=== PATIENT | female | born 2000 | race American Indian/Alaskan Native ===

== ENCOUNTER 2019-07-24 07:01 | Emergency (ER) | payer SELFPAY ==
[2019-07-24 08:14] LABS: HCG Qualitative,Urine Negative (Negative)
[2019-07-24 08:15] LABS: Bilirubin,Urine NEG (Negative); Blood,Urine SM (Negative); Color,Urine Yellow (Yellow); Hyaline Casts,Urine 1 /LPF; Mucus,Urine 3+ /HPF; Urobilinogen,Urine < 2.0 mg/dL (<2.0)
--- NOTE | 2019-07-24 08:21 | Emergency Department Report ---
ED Abdominal Pain HPI - General Chief Complaint: Abdominal Pain Stated Complaint: ABDOMINAL PAIN TOP AREA Time Seen by Provider: 07/24/19 07:53 Source: patient Mode of arrival: Ambulatory Limitations: No Limitations - History of Present Illness Initial Comments: This is a 18-year-old female presents to the ED complaining of upper abdominal pain for the past 3 weeks. Patient states she was seen last week and evaluated at another facility. Patient states that nothing was found. Patient also states that symptoms got worse 2 days ago she she decided to come and be evaluated. Patient states she is not taking any medications. She denies nausea vomiting fever, shortness of breath, chest pain diarrhea or any other symptoms MD Complaint: abdominal pain Location: LUQ, RUQ Radiation: none Migration to: no migration Severity scale (0 -10): 6 Quality: aching, other (squeezing pain) Improves With: nothing Worsens With: nothing Associated Symptoms: denies: nausea, vomiting, diarrhea, fever, constipation, dysuria, hematuria - Related Data Previous Rx's Medication Instructions Recorded Last Taken Type Dicyclomine [Bentyl] 10 mg PO TID #30 capsule 07/24/19 Unknown Rx Famotidine [Pepcid] 20 mg PO BID #40 tablet 07/24/19 Unknown Rx Allergies Allergy/AdvReac Type Severity Reaction Status Date / Time No Known Allergies Allergy Unverified 07/24/19 07:15 ED Review of Systems ROS: Stated complaint: ABDOMINAL PAIN TOP AREA Other details as noted in HPI Comment: All other systems reviewed and negative ED Past Medical Hx - Past Medical History Previous Medical History?: No - Surgical History Past Surgical History?: No - Social History Smoking Status: Never Smoker Substance Use Type: None - Medications Home Medications: Home Medications Medication Instructions Recorded Confirmed Last Taken Type Dicyclomine [Bentyl] 10 mg PO TID #30 capsule 07/24/19 Unknown Rx Famotidine [Pepcid] 20 mg PO BID #40 tablet 07/24/19 Unknown Rx ED Physical Exam - General Limitations: No Limitations General appearance: alert, in no apparent distress - Head Head exam: Present: atraumatic, normocephalic - Eye Eye exam: Present: normal appearance - ENT ENT exam: Present: mucous membranes moist - Neck Neck exam: Present: normal inspection - Respiratory Respiratory exam: Present: normal lung sounds bilaterally. Absent: respiratory distress - Cardiovascular Cardiovascular Exam: Present: regular rate, normal rhythm. Absent: systolic murmur, diastolic murmur, rubs, gallop - GI/Abdominal GI/Abdominal exam: Present: soft, tenderness (to palpation of the upper abdomen), guarding, normal bowel sounds. Absent: distended, rebound, rigid, mass, bruit - Extremities Exam Extremities exam: Present: normal inspection - Back Exam Back exam: Present: normal inspection - Neurological Exam Neurological exam: Present: alert, oriented X3 - Psychiatric Psychiatric exam: Present: normal affect, normal mood - Skin Skin exam: Present: warm, dry, intact, normal color. Absent: rash ED Course Vital Signs 07/24/19 07/24/19 07/24/19 07:17 07:32 11:30 Temperature 98.2 F 97.9 F Pulse Rate 86 68 70 Respiratory 18 16 16 Rate Blood Pressure 110/67 131/70 Blood Pressure 121/74 [Left] O2 Sat by Pulse 98 99 99 Oximetry ED Medical Decision Making - Radiology Data Radiology results: report reviewed, image reviewed ULTRASOUND ABDOMEN, COMPLETE INDICATION: Unspecified upper quadrant pain for 3 weeks. COMPARISON: No relevant prior imaging study available. FINDINGS: Pancreas: No significant abnormality. Abdominal Aorta: No significant abnormality. IVC: No significant abnormality. Liver: No significant abnormality. Gallbladder: No significant abnormality. Bile ducts: No significant abnormality. Common bile duct measures 1.3 mm. Kidneys: Right: No significant abnormality. Left : No significant abnormality. Spleen: No significant abnormality. Free fluid: None. Additional Findings: None. IMPRESSION: 1. No sonographic abnormality of the abdomen. Signer Name: Juan Carrera MD Signed: 07/24/2019 9:59 AM Workstation Name: [id number] Transcribed By: ADRIEN Dictated By: Juan Carrera MD Electronically Authenticated By: Juan Carrera MD Signed Date/Time: 07/24/19 0959 - Medical Decision Making This 18-year-old female who presents with abdominal pain most likely secondary to acute gastritis. All labs were within normal limits.abdominal ultrasound shows no acute findings. Vital signs are normal patient is in acute distress. Discussed the patient to follow up with import export clerk. Critical care attestation.: If time is entered above; I have spent that time in minutes in the direct care of this critically ill patient, excluding procedure time. ED Disposition Clinical Impression: Acute gastric ulcer, Acute gastritis without bleeding Disposition: DC-01 TO HOME OR SELFCARE Is pt being admited?: No Does the pt Need Aspirin: No Condition: Stable Instructions: Gastritis (ED), Diet for Ulcers and Gastritis (ED), Abdominal Pain (ED) Additional Instructions: Make sure to follow up with the primary care physician as discussed. Take all your medications as you've been prescribed. If you have any worsening symptoms or develop new symptoms please return to ED immediately. Prescriptions: Dicyclomine [Bentyl] 10 mg PO TID #30 capsule Famotidine [Pepcid] 20 mg PO BID #40 tablet Referrals: PRIMARY CARE,MD [Primary Care Provider] - 3-5 Days [facility] [Provider Group] - 3-5 Days [facility] [Provider Group] - 3-5 Days Forms: Accompanied Note, Work/School Release Form(ED) Time of Disposition: 11:15
[2019-07-24] MEDS ORDERED: FAMOTIDINE 20 MG TAB PO ONE (09:17)
[2019-07-24] MEDS ORDERED: DICYCLOMINE 10 MG/5 ML ORAL LIQD PO ONE (10:00)
--- NOTE | 2019-07-24 10:03 | Ultrasound Report ---
ULTRASOUND ABDOMEN, COMPLETE INDICATION: Unspecified upper quadrant pain for 3 weeks. COMPARISON: No relevant prior imaging study available. FINDINGS: Pancreas: No significant abnormality. Abdominal Aorta: No significant abnormality. IVC: No significant abnormality. Liver: No significant abnormality. Gallbladder: No significant abnormality. Bile ducts: No significant abnormality. Common bile duct measures 1.3 mm. Kidneys: Right: No significant abnormality. Left : No significant abnormality. Spleen: No significant abnormality. Free fluid: None. Additional Findings: None. IMPRESSION: 1. No sonographic abnormality of the abdomen. Signer Name: Juan Carrera MD Signed: 07/24/2019 9:59 AM Workstation Name: [id number]
[2019-07-24 11:31] VITALS: BP 121/74
== END 2019-07-24 11:30 | disposition home or self-care (01) ==
LOC: ED 07:01
DX: K25.3 Acute gastric ulcer without hemorrhage or perforation (principal); Z79.899 Other long term (current) drug therapy
CPT/HCPCS: 76700; 81001; 81025

== ENCOUNTER 2019-11-13 07:39 | Emergency (ER) | payer OTHER ==
--- NOTE | 2019-11-13 10:41 | Emergency Department Report ---
- General Chief complaint: Skin/Abscess/Foreign Body Stated complaint: BUTT PAIN Time Seen by Provider: 11/13/19 10:05 Source: patient Mode of arrival: Ambulatory Limitations: No Limitations - History of Present Illness Initial comments: 18-year-old obese female with history of recurrent gluteal abscesses some that were previously treated by surgeon presents to the emergency department complaining of a reemergence of symptoms. She reports pain and swelling to her gluteal cleft region but reports no fevers chills or discharge. Reports no abdominal pain, no chest pain. States that she last had it drained about 2 years ago states that she frequently gets abscess to her groin area as well which are normally self-limiting MD complaint: abscess/boil -: Gradual Tetanus Up to Date: yes Location: buttocks Severity: mild Improves with: medication Worsens with: none Context: none - Related Data Previous Rx's Medication Instructions Recorded Last Taken Type Dicyclomine [Bentyl] 10 mg PO TID #30 capsule 07/24/19 Unknown Rx Famotidine [Pepcid] 20 mg PO BID #40 tablet 07/24/19 Unknown Rx Ketorolac [Toradol] 10 mg PO Q6H PRN #15 tablet 11/13/19 Unknown Rx Sulfamethoxazole/Trimethoprim 1 each PO BID #20 tablet 11/13/19 Unknown Rx [Bactrim Ds] cephALEXin [Keflex] 500 mg PO Q6HR #40 capsule 11/13/19 Unknown Rx Allergies Allergy/AdvReac Type Severity Reaction Status Date / Time No Known Allergies Allergy Verified 11/13/19 07:41 Abscess Boil HPI - HPI Chief Complaint: Skin/Abscess/Foreign Body Stated Complaint: BUTT PAIN Time Seen by Provider: 11/13/19 10:05 Home Medications: Previous Rx's Medication Instructions Recorded Last Taken Type Dicyclomine [Bentyl] 10 mg PO TID #30 capsule 07/24/19 Unknown Rx Famotidine [Pepcid] 20 mg PO BID #40 tablet 07/24/19 Unknown Rx Ketorolac [Toradol] 10 mg PO Q6H PRN #15 tablet 11/13/19 Unknown Rx Sulfamethoxazole/Trimethoprim 1 each PO BID #20 tablet 11/13/19 Unknown Rx [Bactrim Ds] cephALEXin [Keflex] 500 mg PO Q6HR #40 capsule 11/13/19 Unknown Rx Allergies/Adverse Reactions: Allergies Allergy/AdvReac Type Severity Reaction Status Date / Time No Known Allergies Allergy Verified 11/13/19 07:41 ED Review of Systems ROS: Stated complaint: BUTT PAIN Other details as noted in HPI Comment: All other systems reviewed and negative ED Past Medical Hx - Past Medical History Previous Medical History?: No - Surgical History Past Surgical History?: Yes Additional Surgical History: I &D - Social History Smoking Status: Never Smoker Substance Use Type: None - Medications Home Medications: Home Medications Medication Instructions Recorded Confirmed Last Taken Type Dicyclomine [Bentyl] 10 mg PO TID #30 capsule 07/24/19 Unknown Rx Famotidine [Pepcid] 20 mg PO BID #40 tablet 07/24/19 Unknown Rx Ketorolac [Toradol] 10 mg PO Q6H PRN #15 tablet 11/13/19 Unknown Rx Sulfamethoxazole/Trimethoprim 1 each PO BID #20 tablet 11/13/19 Unknown Rx [Bactrim Ds] cephALEXin [Keflex] 500 mg PO Q6HR #40 capsule 11/13/19 Unknown Rx ED Physical Exam - General Limitations: No Limitations General appearance: alert, in no apparent distress - Head Head exam: Present: atraumatic, normocephalic - Eye Eye exam: Present: normal appearance, PERRL, EOMI Pupils: Present: normal accommodation - ENT ENT exam: Present: mucous membranes moist, TM's normal bilaterally - Neck Neck exam: Present: normal inspection - Respiratory Respiratory exam: Present: normal lung sounds bilaterally. Absent: respiratory distress - Cardiovascular Cardiovascular Exam: Present: regular rate, normal rhythm. Absent: systolic murmur, diastolic murmur, rubs, gallop - GI/Abdominal GI/Abdominal exam: Present: soft, normal bowel sounds - Extremities Exam Extremities exam: Present: normal inspection - Back Exam Back exam: Present: normal inspection - Neurological Exam Neurological exam: Present: alert, oriented X3 - Psychiatric Psychiatric exam: Present: normal affect, normal mood - Skin Skin exam: Present: warm, dry, intact, normal color. Absent: rash - Expanded Skin Exam Expanded Distribution of rash: generalized Description of rash: Present: erythematous 1 - There is tenderness to this region very vague point of induration primarily normal tissue feeling no cellulitis is noted. No discharge no broken skin ED Course Vital Signs 11/13/19 11/13/19 07:41 09:47 Temperature 98.6 F Pulse Rate 84 Respiratory 18 20 Rate Blood Pressure 125/79 O2 Sat by Pulse 100 Oximetry Critical care attestation.: If time is entered above; I have spent that time in minutes in the direct care of this critically ill patient, excluding procedure time. ED Disposition Clinical Impression: Wound of buttock Disposition: DC-01 TO HOME OR SELFCARE Is pt being admited?: No Does the pt Need Aspirin: No Condition: Stable Instructions: Cellulitis (ED) Prescriptions: Sulfamethoxazole/Trimethoprim [Bactrim Ds] 1 each PO BID #20 tablet cephALEXin [Keflex] 500 mg PO Q6HR #40 capsule Ketorolac [Toradol] 10 mg PO Q6H PRN #15 tablet PRN Reason: Pain Referrals: [facility] [Provider Group] - 3-5 Days JANY DUARTE MD [Staff Physician] - 3-5 Days
[2019-11-13 10:50] VITALS: BP 117/58
[2019-11-13] MEDS ORDERED: IBUPROFEN 600 MG TAB PO ONE (10:53)
== END 2019-11-13 11:04 | disposition home or self-care (01) ==
LOC: ED 07:39
DX: L02.31 Cutaneous abscess of buttock (principal); Z79.899 Other long term (current) drug therapy
CPT/HCPCS: 99282

== ENCOUNTER 2019-11-20 14:57 | Emergency (ER) | payer OTHER ==
[2019-11-20] MEDS ORDERED: ACETAMINOPHEN 325 MG TAB PO ONE (15:02)
[2019-11-20] MEDS ORDERED: ACETAMINOPHEN 325 MG TAB ONE (15:04)
[2019-11-20 15:05] VITALS: BP 112/73
--- NOTE | 2019-11-20 15:30 | Event Note ---
ED Screening Note ED Screening Note: pt is a 18 female presents to the ED abscess to gluteal cleft started a week ago she states 2-3 years ago, she had a surgical procedure for it at [facility] she states it is open and drainage that began 2 days ago she did not notice a fever at home pt was seen a week ago and started on bactrim and keflex states it has been increasing in size This initial assessment/diagnostic orders/clinical plan/treatment(s) is/are subject to change based on patients health status, clinical progression and re- assessment by fellow clinical providers in the ED. Further treatment and workup at subsequent clinical providers discretion. Patient/guardian urged not to elope from the ED as their condition may be serious if not clinically assessed and managed. Initial orders include: labs tylenol given by triage
[2019-11-20 16:10] LABS: Basophils # (Auto) 0.1 K/mm3 (0.0-0.1); Basophils % (Auto) 0.3 % (0.0-1.8); Eosinophils % (Auto) 0.1 % (0.0-4.3); Hemoglobin 12.2 gm/dl (10.1-14.3); Lymphocytes # (Auto) 3.3 K/mm3 (1.2-5.4); Lymphocytes % (Auto) 20.6 % (13.4-35.0); Mean Corpuscular HGB Conc 34 % (30-34); Mean Corpuscular Volume 96 fl (79-97); Monocytes # (Auto) 1.8 K/mm3 (0.0-0.8); Monocytes % (Auto) 11.4 % (0.0-7.3); Platelet Count 385 K/mm3 (140-440); Red Blood Count 3.75 M/mm3 (3.65-5.03); Red Cell Distribution Width 12.7 % (13.2-15.2)
[2019-11-20] MEDS ORDERED: VANCOMYCIN/NS 1 GM/250 ML 1 GM/250 ML BAG IV ONE (16:14)
[2019-11-20] MEDS ORDERED: SODIUM CHLORIDE 0.9% 1000 ML 1,000 ML IV ONE (16:14)
[2019-11-20] MEDS ORDERED: MORPHINE 4 MG/1 ML INJ IV ONE (16:14)
[2019-11-20 16:31] LABS: Alanine Aminotransferase 18 units/L (7-56); Albumin 3.7 g/dL (3.9-5); BUN/Creatinine Ratio 11; Blood Urea Nitrogen 12 mg/dL (7-17); Calcium 9.1 mg/dL (8.4-10.2); Hemolysis Index 26
--- NOTE | 2019-11-20 16:37 | Emergency Department Report ---
HPI - General Chief Complaint: Skin/Abscess/Foreign Body Time Seen by Provider: 11/20/19 15:28 - HPI HPI: 18-year-old -[place] female presents to the emergency department with a complaint of an abscess to the top of her buttocks that is been there for the past 10 days. The patient was seen here on 11/13/2019 for the same symptoms but it was smaller and less painful at that time and apparently was not ready for any type of incision and drainage. The patient was placed on antibiotics which he has taken. Patient denies feeling febrile but did present with a fever here today of 101.8 F. Patient has no past medical history but has had surgical drainage of a pilonidal abscess in this area about 2 years ago. ED Past Medical Hx - Past Medical History Previous Medical History?: No - Surgical History Past Surgical History?: Yes Additional Surgical History: I &D - Social History Smoking Status: Never Smoker Substance Use Type: None - Medications Home Medications: Home Medications Medication Instructions Recorded Confirmed Last Taken Type Dicyclomine [Bentyl] 10 mg PO TID #30 capsule 07/24/19 Unknown Rx Famotidine [Pepcid] 20 mg PO BID #40 tablet 07/24/19 Unknown Rx Ketorolac [Toradol] 10 mg PO Q6H PRN #15 tablet 11/13/19 Unknown Rx Sulfamethoxazole/Trimethoprim 1 each PO BID #20 tablet 11/13/19 Unknown Rx [Bactrim Ds] cephALEXin [Keflex] 500 mg PO Q6HR #40 capsule 11/13/19 Unknown Rx Clindamycin [Clindamycin CAP] 300 mg PO Q6H #28 capsule 11/20/19 Unknown Rx HYDROcodone/APAP 5-325 [Anderson 1 each PO Q6HR PRN #12 tablet 11/20/19 Unknown Rx 5/325] ED Review of Systems ROS: Stated complaint: ABSCESS ON BUTTOCK Other details as noted in HPI Comment: All other systems reviewed and negative Constitutional: fever. denies: chills Respiratory: denies: shortness of breath Cardiovascular: denies: chest pain Gastrointestinal: denies: abdominal pain, vomiting Genitourinary: denies: dysuria, discharge Musculoskeletal: denies: back pain, arthralgia Skin: lesions (Pilonidal abscess). denies: pruritus Neurological: denies: numbness, paresthesias Physical Exam - Physical Exam Vital Signs: Vital Signs 11/20/19 15:04 Temperature 101.8 F H Pulse Rate 65 Respiratory 20 Rate Blood Pressure 112/73 O2 Sat by Pulse 95 Oximetry Physical Exam: GENERAL: The patient is well-developed well-nourished. HENT: Normocephalic. Atraumatic. Patient has moist mucous membranes. EYES: Extraocular motions are intact. NECK: Supple. Trachea is midline. CHEST/LUNGS: Clear to auscultation. There is no respiratory distress noted. HEART/CARDIOVASCULAR: Regular. There is no tachycardia. ABDOMEN: Abdomen is soft, nontender. Patient has normal bowel sounds. SKIN: There is an area of induration with some central fluctuance to the top of the gluteal cleft consistent with a pilonidal abscess. This area is very tender to palpation. Superficially it is about 4 inches in diameter. NEURO: The patient is awake, alert, and oriented. The patient is cooperative. The patient has no focal neurologic deficits. Normal speech. MUSCULOSKELETAL: There is no tenderness or deformity. ED Course Vital Signs 11/20/19 15:04 Temperature 101.8 F H Pulse Rate 65 Respiratory 20 Rate Blood Pressure 112/73 O2 Sat by Pulse 95 Oximetry - Reevaluation(s) Reevaluation #1: The evaluation and incision and drainage was done with nurse john at bedside to hi teacher and assist. 11/20/19 20:01 - Consultations Consultation #1: 11/20/19 18:48 I spoke to the general surgeon on-call, Dr. Nuñez, regarding the patient's CT findings of a 5 cm pilonidal abscess, as well as the patient's presentation with fever and leukocytosis. He recommends incision and drainage within the emergency department, and outpatient follow-up with him on Sunday. If there is a recurrence of the abscess, then the patient will potentially need to go to the operating room. He does not feel that the patient requires admission at this time. - I & D Buttocks Type of Procedure: Simple Site: Pilonidal abscess Blade Size: 11 I & D Procedure: betadine prep, sterile drapes applied, sterile dressing applied, gauze wick placed Progress: 4 cc of 1% lidocaine without epinephrine was used to superficially and locally anesthetize the skin. An 11 blade scalpel was then used to make a 2 cm incision. Using an ultrasound for visualization, the scalpel and forceps were used to dissect through the tissue to the abscess. There was about 30 cc of purulent discharge. The forceps were used to try and break up any loculations. The area was packed with iodoform gauze and cleaned and then covered with sterile gauze. ED Medical Decision Making - Lab Data Result diagrams: 11/20/19 15:55 11/20/19 15:55 - Radiology Data Radiology results: report reviewed CT ABDOMEN AND PELVIS WITH CONTRAST INDICATION / CLINICAL INFORMATION: pilonidal abscess, fever. TECHNIQUE: Axial CT images were obtained through the abdomen and pelvis after IV contrast. All CT scans at this location are performed using CT dose reduction for ALARA by means of automated exposure control. COMPARISON: None available. FINDINGS: LOWER CHEST: No significant abnormality. LIVER: No significant abnormality. GALLBLADDER: No significant abnormality. BILE DUCTS: No significant abnormality. PANCREAS: No significant abnormality. SPLEEN: No significant abnormality. ADRENALS: No significant abnormality. RIGHT KIDNEY and URETER: No significant abnormality. LEFT KIDNEY and URETER: No significant abnormality. STOMACH and SMALL BOWEL: No significant abnormality. COLON: No significant abnormality. APPENDIX: No significant abnormality. PERITONEUM: No free fluid. No free air. No fluid collection. LYMPH NODES: No significant adenop athy. AORTA and ARTERIES: No significant abnormality. IVC and VEINS: No significant abnormality. URINARY BLADDER: No significant abnormality. REPRODUCTIVE ORGANS: No significant abnormality. ADDITIONAL FINDINGS: There is a large fluid collection extending posterior from the distal tip of the coccyx to the subcutaneous tissue point measuring 4.5 x 4.7cm. SKELETAL SYSTEM: No significant abnormality. IMPRESSION: 1. Large fluid collection as noted consistent with a pilonidal abscess - Medical Decision Making This patient presents with a pilonidal abscess. She also presents with a low- grade fever. She has a leukocytosis of 15,000 but there is no lactic acidosis. Patient was given some IV fluid resuscitation, pain medication, IV antibiotics and Tylenol. A CT scan shows the pilonidal abscess. I had a discussion with general surgeon who recommended incision and drainage to the emergency department and they will see the patient in the clinic. As per the procedure section, an incision and drainage was done with about 30 cc of purulent return and then it was packed with iodoform gauze. Patient was reevaluated and her fever has resolved and the rest of her vital signs are within normal limits. Patient will be discharged home with antibiotics and pain medication and referral for general surgery. She will return to the emergency department with any worsening of her symptoms or any acute distress. Critical Care Time: No Critical care attestation.: If time is entered above; I have spent that time in minutes in the direct care of this critically ill patient, excluding procedure time. ED Disposition Clinical Impression: Pilonidal abscess Fever Qualifiers: Fever type: unspecified Qualified Code(s): R50.9 - Fever, unspecified Disposition: TO HOME OR SELFCARE Is pt being admited?: No Condition: Stable Instructions: Abscess Incision and Drainage (ED), Abscess (ED) Additional Instructions: The packing will need to be removed in 2 days and this can be done at an urgent care, primary care physician's office, or back in the emergency department. However you need to be seen as soon as possible with any signs/symptoms of systemic infection such as high-grade fever, increased pain, increased swelling, surrounding redness, or with any acute distress. Take the antibiotics as prescribed. I have given you a referral for a local [facility] surgeon, Dr. Nuñez, to follow-up regarding your abscess. Please follow-up with him or a general surgeon in the next few days. Use warm compresses to the area to try and express any further infection. You can clean the area of your abscess with soap and water but then try to keep it dry. You have been prescribed a medication that is sedating and therefore should not be taken prior to driving, working, and responsible for children and in no way should be mixed with alcohol of any quantity. Prescriptions: Clindamycin [Clindamycin CAP] 300 mg PO Q6H #28 capsule HYDROcodone/APAP 5-325 [Anderson 5/325] 1 each PO Q6HR PRN #12 tablet PRN Reason: Pain Referrals: YAMILETH NUÑEZ MD [Staff Physician] - 3-5 Days Time of Disposition: 20:08
[2019-11-20] MEDS ORDERED: LIDOCAINE-MPF (1%) 10 MG/1 ML VIAL 5 ML INFILTRATI ONE (18:30)
[2019-11-20] MEDS ORDERED: MORPHINE 2 MG/1 ML INJ ONE (19:23)
[2019-11-20] MEDS ORDERED: MORPHINE 2 MG/1 ML INJ IV ONE (21:27)
== END 2019-11-20 21:30 | disposition home or self-care (01) ==
LOC: ED 14:57
DX: L05.01 Pilonidal cyst with abscess (principal); R07.9 Chest pain, unspecified; Z79.899 Other long term (current) drug therapy; Z98.890 Other specified postprocedural states
CPT/HCPCS: 10080; 36415; 74177; 80053; 82140; 84703; 85025; 96365; 96366; 96375; 96376; 99284; J2270; J3370; J7030; Q9967

== ENCOUNTER 2019-11-21 18:30 | Emergency (ER) | payer OTHER ==
--- NOTE | 2019-11-21 18:51 | Event Note ---
ED Screening Note ED Screening Note: pt presents due to packing is coming out and she is having bleeding from site had I&D yesterday This initial assessment/diagnostic orders/clinical plan/treatment(s) is/are subject to change based on patients health status, clinical progression and re- assessment by fellow clinical providers in the ED. Further treatment and workup at subsequent clinical providers discretion. Patient/guardian urged not to elope from the ED as their condition may be serious if not clinically assessed and managed. Initial orders include: wound eval
--- NOTE | 2019-11-21 21:07 | Emergency Department Report ---
HPI - General Chief Complaint: Skin/Abscess/Foreign Body Time Seen by Provider: 11/21/19 18:49 - HPI HPI: This patient was seen here yesterday for a pilonidal abscess that I incised and drained. I was able to get out about 30 cc of purulent drainage and then placed iodoform packing. Patient says that the packing has almost come out, that she has been having some bleeding from the site and has had to change the bandages 3 different times, and she has continued pain. The patient had a fever here yesterday and a leukocytosis of about 16,000. She now presents with a low-grade fever again of 100.5 F and some tachycardia. She otherwise has no other past medical history. The patient says she has been taking the antibiotics and pain medication as prescribed. ED Past Medical Hx - Past Medical History Previous Medical History?: No - Surgical History Past Surgical History?: Yes Additional Surgical History: I &D - Social History Smoking Status: Never Smoker Substance Use Type: None - Medications Home Medications: Home Medications Medication Instructions Recorded Confirmed Last Taken Type Dicyclomine [Bentyl] 10 mg PO TID #30 capsule 07/24/19 Unknown Rx Famotidine [Pepcid] 20 mg PO BID #40 tablet 07/24/19 Unknown Rx Ketorolac [Toradol] 10 mg PO Q6H PRN #15 tablet 11/13/19 Unknown Rx Sulfamethoxazole/Trimethoprim 1 each PO BID #20 tablet 11/13/19 Unknown Rx [Bactrim Ds] cephALEXin [Keflex] 500 mg PO Q6HR #40 capsule 11/13/19 Unknown Rx Clindamycin [Clindamycin CAP] 300 mg PO Q6H #28 capsule 11/20/19 Unknown Rx HYDROcodone/APAP 5-325 [Dana 1 each PO Q6HR PRN #12 tablet 11/20/19 Unknown Rx 5/325] ED Review of Systems ROS: Stated complaint: BUTTOCK BOIL/EXTREME PAIN Other details as noted in HPI Comment: All other systems reviewed and negative Constitutional: denies: chills, fever Respiratory: denies: cough, shortness of breath Cardiovascular: denies: chest pain, palpitations Gastrointestinal: denies: abdominal pain, vomiting Genitourinary: denies: dysuria, discharge Musculoskeletal: other (buttock pain in area of pilonidal abscess) Skin: lesions (pilonidal abscess). denies: pruritus Neurological: denies: headache, weakness Physical Exam - Physical Exam Vital Signs: Vital Signs 11/21/19 18:37 Temperature 100.5 F H Pulse Rate 139 H Respiratory 16 Rate Blood Pressure 134/97 [Right] O2 Sat by Pulse 100 Oximetry Physical Exam: GENERAL: The patient is well-developed well-nourished. HENT: Normocephalic. Atraumatic. Patient has moist mucous membranes. EYES: Extraocular motions are intact. NECK: Supple. Trachea is midline. CHEST/LUNGS: Clear to auscultation. There is no respiratory distress noted. HEART/CARDIOVASCULAR: Regular. There is mild tachycardia. ABDOMEN: Abdomen is soft, nontender. Patient has normal bowel sounds. SKIN: There is a pilonidal abscess. The area is tender to palpation. It is indurated with a central opening and iodoform packing in place. There is some mild venous oozing of blood. NEURO: The patient is awake, alert, and oriented. The patient is cooperative. The patient has no focal neurologic deficits. Normal speech. MUSCULOSKELETAL: There is no tenderness or deformity. There is no evidence of acute injury. ED Course Vital Signs 11/21/19 18:37 Temperature 100.5 F H Pulse Rate 139 H Respiratory 16 Rate Blood Pressure 134/97 [Right] O2 Sat by Pulse 100 Oximetry - I & D Buttocks Type of Procedure: Simple Site: Pilonidal abscess Blade Size: 11 I & D Procedure: betadine prep, sterile drapes applied, sterile dressing applied, gauze wick placed Progress: The previous iodoform gauze was removed and there was a small amount of purulent drainage that came with it. The abscess was locally anesthetized with 3 cc of 1% lidocaine without epinephrine. The abscess cavity was then washed out with about 100 cc of normal saline. It was then repacked with iodoform gauze and covered with sterile saline. ED Medical Decision Making - Lab Data Result diagrams: 11/21/19 20:53 11/21/19 20:53 - Medical Decision Making This patient presents to the emergency department for some continued pain to the area of her pilonidal abscess that was incised and drained by me yesterday. She also says that she has had to change the dressing a few times from some bleeding from the wound/site. Patient presents with a low-grade fever of 100.5 F but it resolved without any antipyretics given. The patient's heart rate also greatly improved before any treatment was given. However the patient was given some IV fluid resuscitation and a dose of pain medication. Later she was also given an IV dose of her clindamycin. I evaluated the pilonidal abscess and it does appear improved from the previous day. The evaluation was done with Cornelia at bedside to special needs bus driver and assist. The iodoform packing was removed and there was a small amount of purulent drainage that came with it. I tried to locally anesthetize the area with a small amount of lidocaine 1% without epinephrine. The wound/abscess was then cleaned with 100 cc of normal saline and then it was repacked with iodoform gauze. Patient's labs are mostly unremarkable. Patient had a previous mild leukocytosis of about 15,000 and it is down to 12,000. No lactic acidosis. The patient will continue with her pain and antibiotic medications. She will follow-up with general surgery, but will return to the emergency department with any worsening of her symptoms or any acute distress. Critical Care Time: No Critical care attestation.: If time is entered above; I have spent that time in minutes in the direct care of this critically ill patient, excluding procedure time. ED Disposition Clinical Impression: Pilonidal abscess Wound of buttock Qualifiers: Encounter type: subsequent encounter Laterality: unspecified laterality Qualified Code(s): S31.809D - Unspecified open wound of unspecified buttock, subsequent encounter Disposition: TO HOME OR SELFCARE Is pt being admited?: No Condition: Stable Instructions: Abscess Incision and Drainage (ED), Abscess (ED) Additional Instructions: Continue taking your antibiotics and pain medication as prescribed. Please follow-up with a general surgeon and once again I have given you a referral for Dr. Nuñez. Return to the emergency department with any worsening of your symptoms or any acute distress. Referrals: YAMILETH NUÑEZ MD [Staff Physician] - 2-3 Days Time of Disposition: 01:02
[2019-11-21] MEDS ORDERED: SODIUM CHLORIDE 0.9% 1000 ML 1,000 ML IV ONE (21:22)
[2019-11-21] MEDS ORDERED: ONDANSETRON 4 MG/2 ML INJ IV ONE (21:22)
[2019-11-21] MEDS ORDERED: MORPHINE 4 MG/1 ML INJ IV ONE ×2 (21:22→23:35)
[2019-11-21 21:28] LABS: Basophils % (Auto) 0.3 % (0.0-1.8); Eosinophils % (Auto) 0.2 % (0.0-4.3); Hematocrit 35.1 % (30.3-42.9); Hemoglobin 11.6 gm/dl (10.1-14.3); Lymphocytes % (Auto) 24.5 % (13.4-35.0); Mean Corpuscular HGB Conc 33 % (30-34); Mean Corpuscular Volume 96 fl (79-97); Monocytes # (Auto) 1.3 K/mm3 (0.0-0.8); Monocytes % (Auto) 10.7 % (0.0-7.3); Platelet Count 370 K/mm3 (140-440); Red Blood Count 3.65 M/mm3 (3.65-5.03); Red Cell Distribution Width 12.8 % (13.2-15.2)
[2019-11-21 21:53] LABS: BUN/Creatinine Ratio 17; Blood Urea Nitrogen 15 mg/dL (7-17); Calcium 9.3 mg/dL (8.4-10.2); Hemolysis Index 12
[2019-11-21] MEDS ORDERED: LIDOCAINE (1%) 10 MG/1 ML VIAL 20 ML MDV INFILTRATI ONE (22:04)
[2019-11-22 01:18] VITALS: BP 128/74
== END 2019-11-22 01:17 | disposition home or self-care (01) ==
LOC: ED 18:30
DX: L05.01 Pilonidal cyst with abscess (principal); Z98.890 Other specified postprocedural states; Z79.899 Other long term (current) drug therapy
CPT/HCPCS: 10080; 36415; 80048; 82140; 85025; 87040; 96365; 96375; 96376; 99283; J2270; J2405; J7030